=== PATIENT | male | born 1980 | race American Indian/Alaskan Native ===

== ENCOUNTER 2021-06-22 13:58 | Emergency (ER) | payer SELFPAY ==
[2021-06-22] MEDS ORDERED: METOCLOPRAMIDE 10 MG/2 ML INJ IV ONE (14:03)
[2021-06-22] MEDS ORDERED: HYDROmorphone 1 MG/1 ML INJ IV ONE (14:03)
[2021-06-22] MEDS ORDERED: SODIUM CHLORIDE 0.9% 500 ML 500 ML IV ONE (14:03)
[2021-06-22] MEDS ORDERED: TETANUS,DIPH,PERTUSS(ACELL) VACCINE 0.5 ML SYRINGE IM ONE (14:03)
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
[2021-06-22 14:09] VITALS: BP 140/72
[2021-06-22 14:37] LABS: Hematocrit 42.3 % (35.5-45.6); Hemoglobin 14.8 gm/dl (11.8-15.2); Mean Corpuscular HGB Conc 35 % (32-34); Mean Corpuscular Volume 87 fl (84-94); Platelet Count 162 K/mm3 (140-440); Red Blood Count 4.87 M/mm3 (3.65-5.03); Red Cell Distribution Width 13.5 % (13.2-15.2)
[2021-06-22 14:45] LABS: INR 0.93 (0.87-1.13)
[2021-06-22 15:01] LABS: BUN/Creatinine Ratio 10; Blood Urea Nitrogen 9 mg/dL (9-20); Calcium 8.3 mg/dL (8.4-10.2); Hemolysis Index 12
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
== END 2021-06-22 16:10 | disposition short-term general hospital (02) ==
LOC: ED 13:58
DX: S61.432A Puncture wound without foreign body of left hand, initial encounter (principal); R79.1 Abnormal coagulation profile; W34.09XA Accidental discharge from other specified firearms, initial encounter; Y93.89 Activity, other specified; Y92.89 Other specified places as the place of occurrence of the external cause; Y99.8 Other external cause status
CPT/HCPCS: 36415; 73130; 80048; 82550; 82962; 85027; 85610; 90715; 96374; 99285; J0690; J1170